=== PATIENT | female | born 1940 | race Caucasian/White ===

== ENCOUNTER 2016-10-06 07:20 | Day surgery (SDC) | payer MEDICARE ==
[~2016-10-06] VITALS: Ht 157.5 cm; Wt 72.7 kg
[2016-10-06] MEDS ORDERED: ROPIvacaine/PF 0.2%, 20 ML ONE (07:34)
[2016-10-06] MEDS ORDERED: LACTATED RINGERS 1,000 ML IV SCH (08:21)
[2016-10-06] MEDS ORDERED: CHOL200024 PO (08:24)
[2016-10-06] MEDS ORDERED: MAGN400T36 PO (08:24)
[2016-10-06] MEDS ORDERED: OLME5TAB4 PO (08:24)
[2016-10-06] MEDS ORDERED: ASPI-496 PO (08:24)
[2016-10-06 08:42] VITALS: BP 161/78
[2016-10-06] MEDS ORDERED: ASPI-621 PO (08:54)
[2016-10-06] MEDS ORDERED: MIDAZOLAM 1 MG/ML, 2ML ONE (09:18)
[2016-10-06] MEDS ORDERED: FENTANYL PF 100 MCG/2ML ONE ×2 (09:18→11:45)
[2016-10-06] MEDS ORDERED: PROPOFOL 10 MG/ML, 20ML ONE (10:15)
[2016-10-06] MEDS ORDERED: ONDANSETRON 2MG/ML, 2ML ONE (10:15)
[2016-10-06] MEDS ORDERED: DEXAMETHASONE 4 MG/ML, 1ML ONE (10:15)
[2016-10-06] MEDS ORDERED: CEFAZOLIN 1,000 MG ONE (10:15)
[2016-10-06] MEDS ORDERED: ONDANSETRON 2MG/ML, 2ML IVPush PRN (11:00)
[2016-10-06] MEDS ORDERED: OXYcodone 5 MG/5 ML ORAL.SOL UDC PO PRN (11:00)
[2016-10-06] MEDS ORDERED: ALBUTEROL SULFATE 2.5 MG/3 ML NPPB PRN (11:00)
[2016-10-06] MEDS ORDERED: LABETALOL 5MG/ML, 20ML IV PRN (11:00)
[2016-10-06] MEDS ORDERED: HYDROmorphone 1 MG/ML, 1ML IV PRN (11:00)
[2016-10-06] MEDS ORDERED: EPHEDRINE 50 MG/ML, 1ML IVPush PRN (11:00)
[2016-10-06] MEDS ORDERED: MIDAZOLAM 1 MG/ML, 2ML IV PRN (11:00)
[2016-10-06] MEDS ORDERED: MEPERIDINE/PF 25MG/0.5ML IVPush PRN (11:00)
[2016-10-06] MEDS ORDERED: hydrALAzine 20 MG/ML, 1ML IV PRN (11:00)
[2016-10-06] MEDS ORDERED: OXYcodone 5 MG/5 ML ORAL.SOL UDC ONE (11:45)
[2016-10-06] MEDS: FENTANYL PF 100 MCG/2ML IV PRN ×2 (11:56→12:00)
== END 2016-10-06 13:20 | disposition home or self-care (01) ==
LOC: OUT 07:20
PROVIDERS: ATTEND Orthopaedic Surgery Adult Reconstructive Orthopaedic Surgery
DX: M24.661 Ankylosis, right knee (principal); I10 Essential (primary) hypertension; K21.9 Gastro-esophageal reflux disease without esophagitis; C67.9 Malignant neoplasm of bladder, unspecified; Z96.651 Presence of right artificial knee joint; Z88.1 Allergy status to other antibiotic agents; Z88.5 Allergy status to narcotic agent; Z88.0 Allergy status to penicillin; Z88.8 Allergy status to other drugs, medicaments and biological substances; Z79.82 Long term (current) use of aspirin
CPT/HCPCS: 27570; 29870; J0690; J1100; J2250; J2405; J2704; J2795; J3010; J7120

== ENCOUNTER 2016-12-09 09:28 | Inpatient (IN) | payer MEDICARE ==
[~2016-12-09] VITALS: Ht 157.5 cm; Wt 73.7 kg
[~2016-12-09 09:28] MED LIST: ASPI-496 PO; ASPI-621 PO; BACITRACIN 50,000 UNIT ONE; CHOL200024 PO; FENTANYL PF 100 MCG/2ML ONE; MAGN400T36 PO; MIDAZOLAM 1 MG/ML, 2ML ONE; OLME5TAB4 PO; TRANEXAMIC ACID 100 MG/ML, 10ML ONE
[2016-12-09] MEDS ORDERED: VANCOMYCIN PER PHARMACY MC STA (09:52)
[2016-12-09] MEDS ORDERED: LACTATED RINGERS 1,000 ML IV SCH ×2 (10:08→11:30)
[2016-12-09 10:11] VITALS: BP 155/73
[2016-12-09] MEDS ORDERED: VANCOMYCIN 1,400 MG in SODIUM CHLORIDE 0.9% 250 ML IV ONE (11:00)
[2016-12-09] MEDS ORDERED: ROCURONIUM 10 MG/ML ONE (12:53)
[2016-12-09] MEDS ORDERED: CEFAZOLIN 1,000 MG ONE (12:53)
[2016-12-09] MEDS ORDERED: SUCCINYLCHOLINE 20 MG/ML, 10ML ONE (12:53)
[2016-12-09] MEDS ORDERED: LIDOCAINE-MPF 2% ,5ML ONE (12:53)
[2016-12-09] MEDS ORDERED: PROPOFOL 10 MG/ML, 20ML ONE (12:53)
[2016-12-09] MEDS ORDERED: GLYCOPYRROLATE 0.4 MG/2 ML, 2ML ONE (12:53)
[2016-12-09] MEDS ORDERED: NEOSTIGMINE 1 MG/ML, 10ML ONE (12:53)
[2016-12-09] MEDS ORDERED: ONDANSETRON 2MG/ML, 2ML ONE (12:53)
[2016-12-09] MEDS ORDERED: PROMETHAZINE 25 MG/ML, 1ML IV PRN (13:30)
[2016-12-09] MEDS ORDERED: hydrALAzine 20 MG/ML, 1ML IV PRN (13:30)
[2016-12-09] MEDS ORDERED: ONDANSETRON 2MG/ML, 2ML IVPush PRN (13:30)
[2016-12-09] MEDS ORDERED: OXYcodone 5 MG/5 ML ORAL.SOL UDC PO PRN (13:30)
[2016-12-09] MEDS ORDERED: LABETALOL 5MG/ML, 20ML IV PRN (13:30)
[2016-12-09] MEDS ORDERED: MIDAZOLAM 1 MG/ML, 2ML IV PRN (13:30)
[2016-12-09] MEDS ORDERED: FENTANYL PF 100 MCG/2ML ONE (15:05)
[2016-12-09] MEDS ORDERED: HYDROmorphone 1 MG/ML, 1ML ONE (15:06)
[2016-12-09] MEDS ORDERED: OXYcodone 5 MG/5 ML ORAL.SOL UDC ONE (15:06)
[2016-12-09] MEDS: SODIUM CHLORIDE 0.9% 1,000 ML IV SCH (15:09)
[2016-12-09] MEDS: FENTANYL PF 100 MCG/2ML IV PRN ×3 (15:16→16:02)
[2016-12-09] MEDS: HYDROmorphone 1 MG/ML, 1ML IV PRN ×3 (15:16→16:02)
[2016-12-09] MEDS ORDERED: PROMETHAZINE 25 MG/ML, 1ML IM PRN (15:30)
[2016-12-09] MEDS ORDERED: SENNA/DOCUSATE TABLET PO PRN (15:30)
[2016-12-09] MEDS ORDERED: LORazepam 1MG TABLET PO PRN (15:30)
[2016-12-09] MEDS ORDERED: HYDROmorphone 1 MG/ML, 1ML IV PRN (15:30)
[2016-12-09] MEDS ORDERED: ZOLPIDEM 5MG TABLET PO PRN (15:30)
[2016-12-09] MEDS ORDERED: ONDANSETRON 4 MG TABLET PO PRN (15:30)
[2016-12-09] MEDS ORDERED: DIPHENHYDRAMINE 50 MG CAPSULE PO PRN (15:30)
[2016-12-09] MEDS ORDERED: ALUMINUM/MAG/SIMETHICONE 30 ML UDC PO PRN (15:30)
[2016-12-09] MEDS ORDERED: BISACODYL 10 MG SUPP PR PRN (15:30)
[2016-12-09] MEDS ORDERED: DIAZEPAM 5 MG TABLET PO PRN (15:30)
[2016-12-09] MEDS ORDERED: ONDANSETRON 2MG/ML, 2ML IV PRN (15:30)
[2016-12-09] MEDS ORDERED: ACETAMINOPHEN 650 MG/20.3 ML UDC PO SCH (15:30)
[2016-12-09] MEDS ORDERED: MAGNESIUM HYDROXIDE 8%, 30ML UDC PO PRN (15:30)
[2016-12-09] MEDS ORDERED: PROMETHAZINE 12.5 MG SUPP PR PRN (15:30)
[2016-12-09] MEDS ORDERED: DIPHENHYDRAMINE 50 MG/ML, 1ML ONE (16:04)
[2016-12-09] MEDS ORDERED: DIPHENHYDRAMINE 25 MG CAPSULE PO PRN (16:30)
[2016-12-09] MEDS: ACETAMINOPHEN 500 MG TABLET PO SCH (18:47)
[2016-12-09] MEDS: TAMSULOSIN 0.4 MG CAP.ER.24H PO SCH (18:47)
[2016-12-09 19:13] VITALS: BP 124/54
[2016-12-09] MEDS: OXYcodone IR 5MG TABLET PO PRN ×2 (21:53→22:33)
[2016-12-09] MEDS: ASPIRIN 81 MG TABLET EC PO SCH (21:56)
[2016-12-09] MEDS: DOCUSATE 100 MG CAPSULE PO SCH (21:56)
[2016-12-09] MEDS: CEFAZOLIN PMX 1GM/50ML 50 ML IVPB SCH (21:56)
[2016-12-10 02:21] VITALS: BP 120/59
[2016-12-10] MEDS: SODIUM CHLORIDE 0.9% 1,000 ML IV SCH ×3 (02:26→21:09)
[2016-12-10] MEDS: ACETAMINOPHEN 500 MG TABLET PO SCH ×3 (02:26→17:38)
[2016-12-10] MEDS: OXYcodone IR 5MG TABLET PO PRN ×5 (02:27→22:52)
[2016-12-10 05:46] LABS: BLOOD UREA NITROGEN 11 mg/dL (7-18)
[2016-12-10] MEDS: CEFAZOLIN PMX 1GM/50ML 50 ML IVPB SCH (06:23)
[2016-12-10 08:40] VITALS: BP 95/57
[2016-12-10] MEDS: DOCUSATE 100 MG CAPSULE PO SCH ×2 (08:43→22:51)
[2016-12-10] MEDS: ASPIRIN 81 MG TABLET EC PO SCH ×2 (08:43→17:43)
[2016-12-10] MEDS: TAMSULOSIN 0.4 MG CAP.ER.24H PO SCH (11:02)
[2016-12-10 13:17] VITALS: BP 109/54
[2016-12-10] MEDS: KETOROLAC 30 MG/1 ML IV SCH (17:43)
[2016-12-10 19:34] VITALS: BP 113/67
[2016-12-11 01:48] VITALS: BP 126/77
[2016-12-11] MEDS: ACETAMINOPHEN 500 MG TABLET PO SCH ×2 (02:07→09:10)
[2016-12-11] MEDS: KETOROLAC 30 MG/1 ML IV SCH ×2 (02:08→10:00)
[2016-12-11] MEDS: ASPIRIN 81 MG TABLET EC PO SCH (05:39)
[2016-12-11 06:35] VITALS: BP 106/57
[2016-12-11] MEDS: SODIUM CHLORIDE 0.9% 1,000 ML IV SCH (07:09)
[2016-12-11] MEDS: DOCUSATE 100 MG CAPSULE PO SCH (09:10)
[2016-12-11] MEDS: TAMSULOSIN 0.4 MG CAP.ER.24H PO SCH (09:10)
[2016-12-11 11:00] VITALS: BP 107/54
[2016-12-11] MEDS ORDERED: ASPI-496 PO (11:06)
[2016-12-11] MEDS ORDERED: ACET500T76 PO (11:07)
[2016-12-11] MEDS ORDERED: OXYC5TAB2 PO (11:08)
[2016-12-11] MEDS ORDERED: DOCU-131 PO (11:09)
[2016-12-11] MEDS ORDERED: CELE200C PO (11:10)
[2016-12-11] MEDS ORDERED: FLU VACC QS2017-18 (36MOS+) UP/PF 0.5 ML IM-VACC ONE (12:00)
== END 2016-12-11 12:40 | disposition home or self-care (01) | DRG 466 ==
LOC: ORIP 09:28 → 4NOR 16:51
PROVIDERS: ADMIT Orthopaedic Surgery Adult Reconstructive Orthopaedic Surgery; ATTEND Orthopaedic Surgery Adult Reconstructive Orthopaedic Surgery
PROC: 0SRT0J9 Replacement of Right Knee Joint, Femoral Surface with Synthetic Substitute, Cemented, Open Approach (ICD-10-PCS; 2016-12-09)
PROC: 0SPT0JZ Removal of Synthetic Substitute from Right Knee Joint, Femoral Surface, Open Approach (ICD-10-PCS; principal; 2016-12-09 11:30)
DX: T84.82XA Fibrosis due to internal orthopedic prosthetic devices, implants and grafts, initial encounter (principal); E43 Unspecified severe protein-calorie malnutrition; K21.9 Gastro-esophageal reflux disease without esophagitis; M24.661 Ankylosis, right knee; M79.7 Fibromyalgia; M81.0 Age-related osteoporosis without current pathological fracture; Y83.1 Surgical operation with implant of artificial internal device as the cause of abnormal reaction of the patient, or of later complication, without mention of misadventure at the time of the procedure; Y92.89 Other specified places as the place of occurrence of the external cause; Z88.0 Allergy status to penicillin; Z88.2 Allergy status to sulfonamides; Z88.8 Allergy status to other drugs, medicaments and biological substances
CPT/HCPCS: 36415; 80048; 82040; 85018; 90686; C1713; J0690; J1170; J1885; J2250; J2405; J2704; J2710; J3010; J3370; J3490; C1776; J0330; J7030; J7050; J7120

== ENCOUNTER 2017-04-23 08:55 | Observation (INO) | payer MEDICARE ==
[~2017-04-23] VITALS: Ht 157.5 cm; Wt 79.0 kg
[~2017-04-23 08:55] MED LIST changes: +ACET500T76 PO; +BUPIVACAINE 0.25% ONE; +BUPIVACAINE/PF 0.25% ONE; +BUPIVACAINE/PF 0.5% ONE; +CELE200C PO; +DIPH25CA61 PO; +DOCU-131 PO; +EPINEPHRINE 1 MG/ML, 1ML ONE; -FENTANYL PF 100 MCG/2ML ONE; +LACT1CAP43 PO; -MIDAZOLAM 1 MG/ML, 2ML ONE; +OLME20TA19 PO; +OXYC5TAB2 PO; +THROMBIN 5,000 UNIT VIAL TP ONE; -TRANEXAMIC ACID 100 MG/ML, 10ML ONE
[2017-04-23] MEDS ORDERED: LACTATED RINGERS 1,000 ML IV SCH (09:43)
[2017-04-23 09:50] VITALS: BP 146/79
[2017-04-23] MEDS ORDERED: MIDAZOLAM 1 MG/ML, 2ML ONE (10:55)
[2017-04-23] MEDS ORDERED: FENTANYL PF 250 MCG/5ML ONE (10:55)
[2017-04-23] MEDS ORDERED: PROPOFOL 10 MG/ML, 20ML ONE (10:56)
[2017-04-23] MEDS ORDERED: NEOSTIGMINE 1 MG/ML, 10ML ONE (10:56)
[2017-04-23] MEDS ORDERED: CEFAZOLIN 1,000 MG ONE ×2 (10:57)
[2017-04-23] MEDS ORDERED: GLYCOPYRROLATE 0.4 MG/2 ML, 2ML ONE (10:57)
[2017-04-23] MEDS ORDERED: SODIUM CHLORIDE 0.9% PF 10ML ONE (10:57)
[2017-04-23] MEDS ORDERED: ROCURONIUM 10 MG/ML,10ML ONE (10:58)
[2017-04-23] MEDS ORDERED: DEXAMETHASONE 4 MG/ML, 1ML ONE ×2 (10:59)
[2017-04-23] MEDS ORDERED: ONDANSETRON 2MG/ML, 2ML ONE (10:59)
[2017-04-23] MEDS ORDERED: PROPOFOL 0 ML ONE (10:59)
[2017-04-23] MEDS ORDERED: LABETALOL 5MG/ML, 20ML IV PRN (13:00)
[2017-04-23] MEDS ORDERED: ONDANSETRON 2MG/ML, 2ML IVPush PRN ×2 (13:00→15:00)
[2017-04-23] MEDS ORDERED: hydrALAzine 20 MG/ML, 1ML IV PRN (13:00)
[2017-04-23] MEDS ORDERED: FENTANYL PF 100 MCG/2ML IV PRN (13:00)
[2017-04-23] MEDS ORDERED: PROMETHAZINE 12.5 MG SUPP PR PRN (13:00)
[2017-04-23] MEDS ORDERED: OXYcodone 5 MG/5 ML ORAL.SOL UDC PO PRN (13:00)
[2017-04-23] MEDS ORDERED: PROMETHAZINE 25 MG/ML, 1ML IV PRN (13:00)
[2017-04-23] MEDS ORDERED: HYDROmorphone 1 MG/ML, 1ML IV PRN (13:00)
[2017-04-23] MEDS ORDERED: PHENYLEPHRINE 10 MG/ML ONE (13:00)
[2017-04-23] MEDS ORDERED: MEPERIDINE/PF 25MG/0.5ML IVPush PRN (13:00)
[2017-04-23] MEDS ORDERED: BUPIVACAINE LIPOSOME/PF INFIL ONE (13:30)
[2017-04-23] MEDS ORDERED: FENTANYL PF 100 MCG/2ML ONE (13:49)
[2017-04-23] MEDS ORDERED: PROPOFOL 50 ML ONE (13:54)
[2017-04-23] MEDS ORDERED: PHARMACY MAY ADJ FOR RENAL FX MC PRN (15:00)
[2017-04-23] MEDS ORDERED: SENNA/DOCUSATE TABLET PO PRN (15:00)
[2017-04-23] MEDS ORDERED: BISACODYL 10 MG SUPP PR PRN (15:00)
[2017-04-23] MEDS ORDERED: CYCLOBENZAPRINE 10 MG TABLET PO PRN (15:00)
[2017-04-23] MEDS ORDERED: PROMETHAZINE 25 MG/ML, 1ML IM PRN (15:00)
[2017-04-23] MEDS ORDERED: morphine SULFATE 10 MG/ML, 1ML IVPush PRN (15:00)
[2017-04-23] MEDS ORDERED: OXYcodone IR 5MG TABLET PO PRN (15:00)
[2017-04-23] MEDS: D5%-0.9% NACL+KCL 20MEQ 1,000 ML IV SCH (16:10)
[2017-04-23 19:48] VITALS: BP 145/85
[2017-04-23] MEDS: SODIUM CHLORIDE FLUSH 10ML SYR IVF SCH (21:00)
[2017-04-23] MEDS: DIPHENHYDRAMINE 12.5MG/5ML ORAL SOL PO SCH (21:00)
[2017-04-23] MEDS: CEFAZOLIN PMX 1GM/50ML 50 ML IVPB SCH (21:29)
[2017-04-24 00:25] VITALS: BP 143/71
[2017-04-24 04:22] VITALS: BP 95/60
[2017-04-24] MEDS: CEFAZOLIN PMX 1GM/50ML 50 ML IVPB SCH (04:45)
[2017-04-24] MEDS: D5%-0.9% NACL+KCL 20MEQ 1,000 ML IV SCH (08:56)
[2017-04-24] MEDS ORDERED: MAGNESIUM OXIDE 400 MG TABLET PO SCH (09:00)
[2017-04-24] MEDS: DIPHENHYDRAMINE 12.5MG/5ML ORAL SOL PO SCH (09:00)
[2017-04-24] MEDS: SODIUM CHLORIDE FLUSH 10ML SYR IVF SCH (09:00)
[2017-04-24] MEDS ORDERED: CHOLECALCIFEROL 1,000 UNIT TABLET PO SCH (09:00)
[2017-04-24] MEDS: TEMPLATE NON-FORMULARY MED. (Olmesartan Medoxomil** (Benicar**) 20 MG) PO SCH ×2 (09:00→09:12)
[2017-04-24 09:12] VITALS: BP 153/77
[2017-04-24] MEDS ORDERED: CYCL5TAB PO (09:15)
[2017-04-24] MEDS ORDERED: OXYC5CAP2 PO (09:15)
[2017-04-24] MEDS ORDERED: DOXY100T PO (09:15)
== END 2017-04-24 11:08 | disposition home or self-care (01) ==
LOC: OUT 08:55 → ORIP 14:33 → 4NOR 15:47 → DCLOUNGE 04-24 10:45
PROVIDERS: ADMIT Neurological Surgery; ATTEND Neurological Surgery
DX: M48.062 Spinal stenosis, lumbar region with neurogenic claudication (principal); G43.909 Migraine, unspecified, not intractable, without status migrainosus; M54.10 Radiculopathy, site unspecified; K21.9 Gastro-esophageal reflux disease without esophagitis; M79.7 Fibromyalgia; Z87.891 Personal history of nicotine dependence
CPT/HCPCS: 63047; 63048; 69990; 72100; 96365; 96375; 97162; 97166; C9290; G0378; J0171; J0690; J1100; J2250; J2370; J2405; J2704; J2710; J3010; J3480; J3490; J7120; Q0163